=== PATIENT | female | born 1930 | race Asian ===

== ENCOUNTER 2016-12-31 07:34 | Emergency (ER) | payer OTHER ==
[~2016-12-31] VITALS: Ht 134.6 cm; Wt 39.9 kg
[~2016-12-31 07:34] MED LIST: ADALAT CC60 MG; ALBUTEROL2.5 MG/0.1 INH; ARICEPT10 M1 PO; B-121000 MCG PO; CALCIUM 500 WI1 EAC3; CALCIUM 600 +1 EA11 PO; DUONEB 2.5-0.5 M3 ML INH; FOLBIC RF TABL1 EACH; GARLIC CHOLEST300 MG; GARLIC OIL1 EACH PO; GARLIC OIL1000 MG PO; GLUCOPHAGE XR500 MG PO; LEVAQUIN 500 M500 M1 PO; LEVOTHYROXIN0.025 MG PO; MULTI VITAMIN1 EACH PO; MULTIVITAMINS1 EAC7; NIFEDIPINE ER30 M1 PO; PERFOROMIS20 MCG/2 M INH; PREDNISONE 10 M10 M1 PO; PULMICORT0.5 MG/2 M INH; ZESTRIL2.5 MG PO; [UNRECOGNIZED DRUG - REMARK] PO
[2016-12-31 08:27] LABS: ABSOLUTE NEUTROPHILS 7.5 thou/uL (1.4-8.2); BASOPHILS 0.9 % (0.0-2.0); EOSINOPHILS 1.3 % (0.0-3.0); HEMATOCRIT 33.7 % (37.0-47.0); HEMOGLOBIN 11.5 gm/dL (12.0-15.0); LYMPHOCYTES 16.2 % (24.0-44.0); MANUAL DIFF NO; MCH 30.3 pg (26.0-34.0); MCV 89.1 fL (80.0-100.0); MONOCYTES 8.3 % (1.0-8.0); PLATELET COUNT 273 thou/uL (150-400); POLYS 73.3 % (36.0-66.0); RBC 3.78 mil/uL (4.20-5.00); RDW 15.6 % (10.5-14.5); WBC 10.3 thou/uL (4.0-11.0)
[2016-12-31 08:34] LABS: CALCIUM 9.6 mg/dL (8.5-10.1); CREATININE 1.4 mg/dL (0.6-1.0); POTASSIUM 3.8 mmol/L (3.5-5.1)
[2016-12-31 08:40] LABS: ALBUMIN 3.5 g/dL (3.4-5.0); TOTAL BILIRUBIN 0.5 mg/dL (<0.1-1.0)
[2016-12-31 08:41] LABS: PROTIME 9.9 Seconds (9.3-11.4)
[2016-12-31] MEDS ORDERED: COLACE100 MG PO (09:21)
== END 2016-12-31 09:58 | disposition home or self-care (01) ==
LOC: ER 07:34
PROVIDERS: Emergency Medicine
DX: K62.5 Hemorrhage of anus and rectum (principal); E11.9 Type 2 diabetes mellitus without complications; I10 Essential (primary) hypertension; E03.9 Hypothyroidism, unspecified; K21.9 Gastro-esophageal reflux disease without esophagitis; G30.9 Alzheimer's disease, unspecified; F02.80 Dementia in other diseases classified elsewhere, unspecified severity, without behavioral disturbance, psychotic disturbance, mood disturbance, and anxiety; J45.909 Unspecified asthma, uncomplicated

== ENCOUNTER 2017-03-03 12:58 | Inpatient (IN) | payer OTHER ==
[~2017-03-03] VITALS: Ht 139.7 cm; Wt 41.5 kg
--- NOTE | ~2017-03-03 | EKG ---
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
[~2017-03-03 12:58] MED LIST changes: +COLACE100 MG PO
[2017-03-03 12:59] VITALS: BP 122/61
[2017-03-03 13:32] LABS: ANION GAP 9 mmol/L (7-16); BUN 24 mg/dL (7-18); CALCIUM 9.2 mg/dL (8.5-10.1); CHLORIDE 106 mmol/L (98-107); CO2 26 mmol/L (21-32); CREATININE 1.5 mg/dL (0.6-1.0); GLUCOSE 89 mg/dL (74-106); POTASSIUM 4.8 mmol/L (3.5-5.1); SODIUM 141 mmol/L (136-145)
[2017-03-03 13:40] LABS: TROPONIN-I < 0.04 ng/mL (<0.06)
[2017-03-03 14:11] LABS: ABSOLUTE NEUTROPHILS 9.5 thou/uL (1.4-8.2); BASOPHILS 0.3 % (0.0-2.0); EOSINOPHILS 0.4 % (0.0-3.0); HEMATOCRIT 34.3 % (37.0-47.0); HEMOGLOBIN 11.2 gm/dL (12.0-15.0); LYMPHOCYTES 15.3 % (24.0-44.0); MANUAL DIFF NO; MCHC 32.7 g/dL (28.0-37.0); MCV 88.8 fL (80.0-100.0); MONOCYTES 9.2 % (1.0-8.0); PLATELET COUNT 231 thou/uL (150-400); POLYS 74.8 % (36.0-66.0); RBC 3.87 mil/uL (4.20-5.00); RDW 15.4 % (10.5-14.5); WBC 12.7 thou/uL (4.0-11.0)
[2017-03-03 15:04] VITALS: BP 133/63
[2017-03-03 15:33] VITALS: BP 132/67
[2017-03-03 15:44] LABS: TSH 0.947 uIU/mL (0.358-3.740)
[2017-03-03 15:50] VITALS: BP 134/65
[2017-03-03 20:00] VITALS: BP 139/59
[2017-03-04] VITALS: BP 159/62
[2017-03-04 04:00] VITALS: BP 148/69
[2017-03-04 06:28] LABS: HEMATOCRIT 32.4 % (37.0-47.0); HEMOGLOBIN 10.2 gm/dL (12.0-15.0); MCH 28.4 pg (26.0-34.0); MCHC 31.6 g/dL (28.0-37.0); MCV 90.2 fL (80.0-100.0); RBC 3.6 mil/uL (4.20-5.00); RDW 15.4 % (10.5-14.5); WBC 18.1 thou/uL (4.0-11.0)
[2017-03-04 06:46] LABS: % SATURATION 14 % (20-39); IRON 33 ug/dL (50-170); TIBC 237 ug/dL (250-450); UIBC 204 ug/dL
[2017-03-04 07:50] VITALS: BP 150/70
[2017-03-04] MEDS ORDERED: BREO ELLIPTA 11 EACH INH (08:51)
[2017-03-04] MEDS ORDERED: LIPITOR10 MG PO (08:59)
[2017-03-04] MEDS ORDERED: VITAMIN B-12500 MCG PO (09:01)
[2017-03-04 15:20] VITALS: BP 130/52
[2017-03-04 19:27] VITALS: BP 151/89
[2017-03-04 23:20] VITALS: BP 137/74
[2017-03-05 03:35] VITALS: BP 126/78
[2017-03-05 07:27] VITALS: BP 121/70
[2017-03-05 11:48] LABS: ABSOLUTE NEUTROPHILS 10.4 thou/uL (1.4-8.2); BASOPHILS 0.3 % (0.0-2.0); EOSINOPHILS 1.3 % (0.0-3.0); HEMATOCRIT 33.8 % (37.0-47.0); HEMOGLOBIN 11.3 gm/dL (12.0-15.0); LYMPHOCYTES 16.3 % (24.0-44.0); MANUAL DIFF NO; MCH 29.9 pg (26.0-34.0); MCHC 33.4 g/dL (28.0-37.0); MCV 89.4 fL (80.0-100.0); MONOCYTES 7.2 % (1.0-8.0); PLATELET COUNT 229 thou/uL (150-400); POLYS 74.9 % (36.0-66.0); RBC 3.78 mil/uL (4.20-5.00); RDW 15.2 % (10.5-14.5); WBC 13.8 thou/uL (4.0-11.0)
[2017-03-05] MEDS ORDERED: PREDNISONE 5 MG5 M1 PO (14:52)
== END 2017-03-05 16:53 | DRG 378 ==
LOC: ER 12:58 → 4E 14:33 → EROBS 14:33 → 4E 15:45
PROVIDERS: Emergency Medicine; Hospitalist; Internal Medicine Gastroenterology
DX: K92.2 Gastrointestinal hemorrhage, unspecified (principal); J44.1 Chronic obstructive pulmonary disease with (acute) exacerbation; R63.0 Anorexia; E11.9 Type 2 diabetes mellitus without complications; I10 Essential (primary) hypertension; E03.9 Hypothyroidism, unspecified; K21.9 Gastro-esophageal reflux disease without esophagitis; G30.9 Alzheimer's disease, unspecified; F02.80 Dementia in other diseases classified elsewhere, unspecified severity, without behavioral disturbance, psychotic disturbance, mood disturbance, and anxiety; D72.829 Elevated white blood cell count, unspecified; D50.9 Iron deficiency anemia, unspecified; Z79.899 Other long term (current) drug therapy; Z68.21 Body mass index [BMI] 21.0-21.9, adult
CPT/HCPCS: 10183